=== PATIENT | male | born 1940 | race Caucasian/White ===

== ENCOUNTER 2022-12-29 15:58 | Emergency (ER) | payer MEDICARE, BC, OTHER ==
[~2022-12-29] VITALS: Ht 172.7 cm; Wt 76.0 kg
[2022-12-29] VITALS (10 sets, daily range): BP systolic 125–161; BP diastolic 47–69
[~2022-12-29 15:58] MED LIST: ADVAIR DISK1 INH; ALPRAZOLAM1 MG PO; ASPIRIN 81 LOW81 MG PO; ASTEPRO0.15 %; DALIRESP500 MCG PO; DESLORATADINE5 MG PO; FLONASE NASAL50 MCG; FOLIC ACID1 MG PO; LANSOPRAZOLE30 MG PO; MONTELUKAST SOD10 MG PO; NAPROSYN250 MG PO; PAROXETINE10 MG PO; PAROXETINE20 MG PO; PATANOL0.1 % OP; PAXIL30 MG PO; PROVENTIL HFA IN; SIMVASTATIN40 MG PO; SPIRIVA HANDIHALER IN; ZETIA10 MG PO
[2022-12-29] MEDS ORDERED: VIBRAMYCIN100 M2 PO (19:49)
== END 2022-12-29 20:59 | disposition home or self-care (01) ==
LOC: ED 15:58
PROC: 0H9AXZZ Drainage of Inguinal Skin, External Approach (ICD-10-PCS; principal; 2022-12-29)
DX: L02.214 Cutaneous abscess of groin (principal); B95.7 Other staphylococcus as the cause of diseases classified elsewhere; I10 Essential (primary) hypertension

== ENCOUNTER 2022-12-31 08:36 | Emergency (ER) | payer MEDICARE, BC, OTHER ==
[~2022-12-31] VITALS: Ht 172.7 cm; Wt 76.2 kg
[~2022-12-31 08:36] MED LIST changes: +VIBRAMYCIN100 M2 PO
[2022-12-31 08:49] VITALS: BP 113/49
[2022-12-31 09:00] VITALS: BP 130/49
[2022-12-31] MEDS ORDERED: OMNI-PAC300 MG PO (09:01)
[2022-12-31] MEDS ORDERED: BACTRIM DS1 TAB PO (09:01)
[2022-12-31 09:15] VITALS: BP 121/48
== END 2022-12-31 09:23 | disposition home or self-care (01) ==
LOC: ED 08:36
DX: Z48.01 Encounter for change or removal of surgical wound dressing (principal); I10 Essential (primary) hypertension

== ENCOUNTER 2024-11-26 13:31 | Emergency (ER) | payer MEDICARE, BC, OTHER ==
[2024-11-26] VITALS (11 sets, daily range): BP systolic 100–120; BP diastolic 39–74
[~2024-11-26] VITALS: Ht 172.7 cm; Wt 69.8 kg
[~2024-11-26 13:31] MED LIST changes: +BACTRIM DS1 TAB PO; +OMNI-PAC300 MG PO
[2024-11-26] MEDS ORDERED: TAMSULOSIN0.4 MG PO (14:15)
[2024-11-26] MEDS ORDERED: GABAPENTIN300 M2 PO (14:15)
[2024-11-26 14:25] LABS: BASO% 0.5 % (0-3); EOS% 1.3 % (0-8); HEMATOCRIT 35.7 % (39.0-50.0); IMMATURE GRANULOCYTES 0.3 % (0.0-5.0); LYMPH% 13.4 % (15-41); MEAN CORPUSCULAR HGB 28.1 pG CALC (26.0-32.0); MEAN CORPUSCULAR HGB CONC 33.1 g/dL CAL (32.0-36.0); MONO% 9.8 % (2-13); NEUT# 4.74 thou/uL (1.82-7.42); NEUT% 74.7 % (42-76); RED BLOOD COUNT 4.2 mill/uL (4.70-6.10)
[2024-11-26 14:29] LABS: HEMOGLOBIN 11.8 g/dl (14.0-18.0)
[2024-11-26 14:41] LABS: ALBUMIN 3.8 g/dL (3.2-5.0); BILIRUBIN, TOTAL 0.6 mg/dL (0.2-1.3); CREATININE 1.5 mg/dL (0.7-1.3); POTASSIUM 3.9 mmol/l (3.5-5.1); TOTAL PROTEIN 6.6 g/dL (6.3-8.2)
[2024-11-26] MEDS ORDERED: OSELTAMIVIR PHOSPHATE 75 MG/TAB CAP PO ONE (15:40)
[2024-11-26] MEDS ORDERED: BENZONATATE200 MG PO (16:12)
[2024-11-26] MEDS ORDERED: TAM75CAP PO (16:12)
== END 2024-11-26 16:30 | disposition home or self-care (01) ==
LOC: ED 13:31
PROVIDERS: Nurse Practitioner
DX: J10.1 Influenza due to other identified influenza virus with other respiratory manifestations (principal); I10 Essential (primary) hypertension; E78.5 Hyperlipidemia, unspecified; Z20.822 Contact with and (suspected) exposure to COVID-19